=== PATIENT | female | born 1970 | race Native Hawaiian/Other Pacific Islander ===

== ENCOUNTER 2016-11-15 14:24 | Emergency (ER) | payer BC ==
[2016-11-15 14:45] VITALS: BP 120/84; PULSE 100; RESP 18; TEMP 98.1; O2SAT 99
[2016-11-15] MEDS ORDERED: DiphenhydrAMINE 50 mg/ml Inj ONE (15:00)
[2016-11-15] MEDS: Sodium Chloride 0.9% 1,000 ML IV STA (15:13)
[2016-11-15] MEDS: DiphenhydrAMINE 50 mg/ml Inj IVP STA (15:14)
--- NOTE | 2016-11-15 15:16 | ED PDOC ---
HPI: Allergic Reaction Time Seen by Provider: 11/15/16 14:39 Chief Complaint (Nursing): Allergic Reaction Chief Complaint (Provider): rash History Per: Patient History/Exam Limitations: no limitations Context: Food Possible Cause: Food Associated Symptoms: Skin Rash Additional Complaint(s): 46yo female comes to the ED complaining of itchy erythematous rash associated with chest tightness after ingesting fish sauce at lunch today. Patient has allergies to shellfish. She took Benadryl 50mg PO with no improvement. No shortness of breath however she feels itchy. No difficulty swallowing. Past Medical History Reviewed: Historical Data, Nursing Documentation, Vital Signs Vital Signs: Last Vital Signs Temp 98.1 F 11/15/16 14:38 Pulse 100 H 11/15/16 14:38 Resp 18 11/15/16 14:38 BP 120/84 11/15/16 14:38 Pulse Ox 99 11/15/16 14:38 - Medical History PMH: Diabetes, HTN, Hypercholesterolemia - Surgical History Surgical History: No Surg Hx - Family History Family History: States: [place], Diabetes - Social History Drugs: Denies - Home Medications Home Medications: Ambulatory Orders Medication Instructions Recorded Canagliflozin [Invokana] 300 mg PO DAILY 12/16/14 Ergocalciferol (Vitamin D2) 50,000 unit PO QWK 12/16/14 [Vitamin D2] Liraglutide [Victoza 2-Jorge Alberto] 1.8 mg SC DAILY 12/16/14 Metformin Hydrochloride [Metformin] 1,000 mg PO BID 12/16/14 Olmesartan Medoxomil [Benicar] 20 mg PO DAILY 12/16/14 Ondansetron [Zofran] 4 mg PO Q8H #30 tab 12/17/14 Pantoprazole [Protonix EC Tab] 40 mg PO DAILY #0 ect 12/17/14 predniSONE [predniSONE Tab] 10 mg PO TID #15 tab 11/15/16 - Allergies Allergies/Adverse Reactions: Allergies Allergy/AdvReac Type Severity Reaction Status Date / Time crab Allergy SHORTNESS Verified 11/15/16 14:38 OF BREATH Review of Systems ROS Statement: Except As Marked, All Systems Reviewed And Found Negative ENT: Negative for: Mouth Swelling, Throat Swelling Respiratory: Negative for: Shortness of Breath Skin: Positive for: Rash Physical Exam - Reviewed Nursing Documentation Reviewed: Yes Vital Signs Reviewed: Yes - Physical Exam Appears: Positive for: Well, Non-toxic, No Acute Distress Head Exam: Positive for: ATRAUMATIC, NORMAL INSPECTION, NORMOCEPHALIC Skin: Positive for: Warm, Dry, Rash (erythematous urticarial rash to arms and back. ) Eye Exam: Positive for: EOMI, PERRL ENT: Positive for: Normal ENT Inspection, Other (No swelling or stridor.) Cardiovascular/Chest: Positive for: Regular Rate, Rhythm Respiratory: Positive for: Other (Lungs are clear.). Negative for: Rales, Rhonchi, Wheezing Gastrointestinal/Abdominal: Positive for: Soft. Negative for: Tenderness Extremity: Positive for: Normal ROM - ECG O2 Sat by Pulse Oximetry: 99 (RA) Pulse Ox Interpretation: Normal - Progress ED Course And Treament: 1445 Benadryl, IV fluids, pepcid, solumedrol ordered. Disposition - Clinical Impression Clinical Impression: Allergic reaction - Patient ED Disposition Is Patient to be Admitted: Transfer of Care - Disposition Disposition: Transfer of Care Disposition Time: 17:16 Condition: FAIR Prescriptions: predniSONE [predniSONE Tab] 10 mg PO TID #15 tab Patient Signed Over To: Leonardo Stafford Additional Comments - Additional Comments Additional Comments: Scribe Attestation: Documented by Panda Hung acting as a scribe for Gio Fairbanks MD. Provider Scribe Attestation: All medical record entries made by the Scribe were at my direction and personally dictated by me. I have reviewed the chart and agree that the record accurately reflects my personal performance of the history, physical exam, medical decision making, and the department course for this patient. I have also personally directed, reviewed, and agree with the discharge instructions and disposition.
--- NOTE | 2016-11-15 18:28 | ED PDOC ---
- ECG O2 Sat by Pulse Oximetry: 99 (RA) Pulse Ox Interpretation: Normal - Progress ED Course And Treament: sx resolved advise claritin and steroids close f/u with pmd. Re-evaluation Time: 18:26 Condition: Improved Disposition Counseled Patient/Family Regarding: Studies Performed, Diagnosis, Need For Followup, Rx Given - Clinical Impression Clinical Impression: Allergic reaction - POA Present On Arrival: None - Disposition Referrals: [facility] [Outside] (2 to 3 days) Disposition: Routine/Home Disposition Time: 18:26 Condition: GOOD Prescriptions: Loratadine [Claritin] 10 mg PO DAILY PRN #30 tab PRN Reason: Allergy Symptoms predniSONE [predniSONE Tab] 10 mg PO TID #15 tab
== END 2016-11-15 18:50 | disposition home or self-care (01) ==
LOC: H.ER 14:24
DX: T78.40XA Allergy, unspecified, initial encounter (principal); R21 Rash and other nonspecific skin eruption; E11.9 Type 2 diabetes mellitus without complications; E78.00 Pure hypercholesterolemia, unspecified; I10 Essential (primary) hypertension; Z79.84 Long term (current) use of oral hypoglycemic drugs
CPT/HCPCS: 81025; 96374; 96375; 99284; J1200; J2930; J7040